=== PATIENT | female | born 1975 | race African-American/Black ===

== ENCOUNTER 2016-12-10 11:39 | Emergency (ER) | payer OTHER ==
[~2016-12-10 11:39] MED LIST: ALBUTEROL0.09 MG/A1 INH; AMOXICILLIN875 MG PO; AUGMENTIN 875 M1 TAB PO; IBUPROFEN800 MG PO
--- NOTE | 2016-12-10 11:55 | ED GI/GU/ABDOMINAL COMPLAINT ---
History of Present Illness General Chief Complaint: Female Urogenital Problems Stated Complaint: ? , BACK/FLANK DISCOMFORT Source: patient, old records Exam Limitations: no limitations Vital Signs & Intake/Output Vital Signs & Intake/Output Vital Signs Date Time Temp Pulse Resp B/P B/P Pulse O2 O2 Flow FiO2 Mean Ox Delivery Rate 12/10 1458 76 18 127/81 98 Room Air 12/10 1150 98.4 94 16 143/86 97 Room Air Allergies Uncoded Allergies: SHRIMP (DIFF BREATHING THROAT CLOSES 10/28/11) Reconcile Medications Albuterol Sulfate (Albuterol Sulfate Hfa) 0.09 MG/Actuation CHRISTINA 2 PUFF INH Q4- 6 PRN PRN SHORTNESS OF BREATH 90 MCG PER PUFF Amoxicillin 875 MG TAB 1 TAB PO BID INFECTION AMOXICILLIN/POTASSIUM CLAV (Augmentin 875-125 Tablet) 875 MG/125 MG TAB 1 TAB PO BID SINUSITIS/BRONCHITIS Ibuprofen 800 MG TAB 1 TAB PO TID PAIN Triage Note: PT TO TRIAGE WITH MID BACK PAIN RADIATING AROUND TO FRONT OF HER ABDOMEN. DENIES ANY URINARY S/S. +NAUSEA. STATES SHE IS , UNSURE EXACT TIMELINE. STATES LMP WAS END OF SEPTEMBER. OB IS DR ECHAVARRIA. Triage Nurses Notes Reviewed? yes LMP (ages 10-50): 10/06 ? y Is pt currently ? No Onset: Abrupt Duration: week(s): (1), constant, intermittent Timing: recent history Quality/Severity: cramping Severity Numbers: 5 Location: generalized abdomen, low back Radiation: no radiation Activities at Onset: none No Modifying Factors: none Associated Symptoms: nausea HPI: This is a 41-year-old female presents to ER for evaluation complaining of bilateral lower back pain associated crampy generalized abdominal pain for the past 1 week. She states she initially attributed the symptoms to standing at her job. 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 rodriguez, whom she saw last week. She had an ultrasound that confirmed an IUP and she states she was told she is a partially 5 weeks . Her last ventral cycles at the end of September. She denies any vaginal bleeding or discharge. She reports intermittent nausea she is not taken anything for her back pain no recent fall or trauma. Her abdominal surgery significant for appendectomy cholecystectomy. No fever no chills no chest pain or shortness of breath (REGGIE HALL) Past History Travel History Traveled to [place] past 21 day No Medical History Any Pertinent Medical History? 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 No (REGGIE HALL) Review of Systems Review of Systems Constitutional: Reports: see HPI. All Other Systems: Reviewed and Negative Comments Review of systems: See HPI, All other systems negative. Constitutional, no chills no fever, no malaise HEENT: No visual changes no sore throat no congestion, no ear pain Cardiovascular: No chest pain , no palpitation Skin: no rashes, no change in skin Respiratory: No dyspnea no cough no sputum GI: No nausea no vomiting, no diarrhea : No dysuria Muscle skeletal: No joint pain, no joint swelling, no back pain, no neck pain, Neurologic: No numbness no headache Psych: No stress Heme/endocrine: No bruising no bleeding Immunology: No lymphadenopathy (REGGIE HALL) Physical Exam Physical Exam General Appearance: well developed/nourished, alert, awake Gastrointestinal: soft Comments: Well-developed well-nourished person in no acute distress HEENT: Normal EENT exam; PERRL, EOMI, HEAD is atraumatic. moist mucous membranes. Neck: Supple, no lymphadenopathy, normal range of motion Back: Bilateral paralumbar muscle tenderness palpation no CVA tenderness. Full range of motion Cardiovascular: Regular rate and rhythms no murmurs Respiratory: No respiratory distress. Patient speaking in full complete sentences. Breath sounds clear to auscultation bilaterally: NO W/R/R Abdomen: Soft, P's, nontender nondistended, no appreciable organomegaly. Normal bowel sounds. No rebound/guarding, Extremity: No edema, full range of motion of extremities, Neuro: Alert oriented x3, motor sensory normal,. There were no obvious focal neurologic abnormalities. Skin: No appreciable rash on exposed skin, skin is warm and dry. Psych: Mood and affect is normal, memory and judgment is normal. Core Measures ACS in differential dx? No Severe Sepsis Present: No Septic Shock Present: No (DONNA MIRANDA,REGGIE) Progress Differential Diagnosis: appendicitis, bowel obstruction, colon cancer, cholecystitis, ectopic , gastritis, hepatitis, hernia, inflamm bowel dis, intrauterine , kidney stone, ovarian cyst, ovarian torsion, pancreatitis, PID/cervicitis, peptic ulcer, PUD/GERD, perforated viscous, SBO Plan of Care: Orders Procedure Date/time Status HUMAN BETA HCG TITRE 12/10 1155 Complete COMPREHENSIVE METABOLIC PANEL 12/10 1155 Complete CBC WITHOUT DIFFERENTIAL 12/10 1155 Complete CULTURE,URINE 12/10 1142 Active URINALYSIS 12/10 1142 Complete Laboratory Tests 12/10/16 1324: Urinalysis LIGHT H, Urine Color YEL, Urine Clarity HAZY H, Urine pH 6.0, Ur Specific [place] >= 1.030, Urine Protein 100 H, Urine Ketones NEG, Urine Nitrite NEG, Urine Bilirubin NEG, Urine Urobilinogen 0.2, Ur Leukocyte Esterase NEG, Ur Microscopic SEDIMENT EXAMINED, Urine RBC 1-3, Urine WBC 1-3 H, Ur Epithelial Cells MOD H, Urine Bacteria FEW H, Urine Mucus FEW, Urine Hemoglobin NEG, Urine Glucose NEG 12/10/16 1211: Anion Gap 10, Estimated GFR > 60, BUN/Creatinine Ratio 18.3, Glucose 215 H, Calcium 9.0, Total Bilirubin 0.3, AST 11 L, ALT 23, Alkaline Phosphatase 58, Total Protein 6.3, Albumin 3.5, Globulin 2.8, Albumin/Globulin Ratio 1.3, Beta HCG, Quant 2379.3, CBC w Diff MAN DIFF ORDERED, RBC 4.65, MCV 78.4 L, MCH 25.1 L, RDW 16.1 H, MPV 7.4, Gran % 52.3, Lymphocytes % 37.7, Monocytes % 4.9, Eosinophils % 4.7, Basophils % 0.4, Absolute Granulocytes 5.0, Absolute Lymphocytes 3.6 H, Absolute Monocytes 0.5, Absolute Eosinophils 0.4, Absolute Basophils 0, Platelet Estimate VERIFIED BY SMEAR, Hypochromic-Microcytic 1+, Anisocytosis 1+, Microcytic Cells 1+, PUBS MCHC 32.0 L Microbiology 12/10 1324 URINE ROUT: Urine Culture - RECD Labs ordered old records reviewed patient acute Zofran ODT case discussed with Dr. Lockett agrees with plan Repeat evaluation patient is feeling improved. She's had no episodes of nausea or vomiting here in the department I discussed with the patient at length all of their results. I had an extensive conversation regarding need for close follow up with their primary care physician this week as well as return precautions. I answered all of their questions, they feel comfortable with the plan and follow-up care. I discussed with the patient/family the medications that they will receive. I gave them signs and symptoms that could indicate an adverse reaction. I have advised them to limit their activities until they can see how they respond to the medication. (REGGIE HALL) Diagnostic Imaging: Viewed by Me: Ultrasound. Discussed w/RAD: Ultrasound. Radiology Impression: PATIENT: MORRIS MAURICIO PRESENT AGE: 41 PATIENT ACCOUNT NO: [id number] : 76 LOCATION: [facility] ORDERING PHYSICIAN: REGGIE MIRANDA SERVICE DATE: 12/10/161207 EXAM TYPE: US - US TRANSVAG EXAMINATION: ULTRASOUND FIRST TRIMESTER CLINICAL INFORMATION: Back pain. . COMPARISON: None. TECHNIQUE: Transabdominal and transvaginal imaging of the pelvis was performed. Transvaginal imaging was performed for further evaluation of the endometrium and adnexa. Evaluation is limited secondary to the patient's extreme body habitus. FINDINGS: Limited exam as stated above. A normal gravid uterus is identified. A single living intrauterine gestation is identified with a crown-rump length of 4 mm corresponding to 5 weeks 4 days. This is discordant from the age by dates of 6 weeks 4 days. The JOANN by ultrasound is 08/08/2017. A heart rate is identified; however, measurements cannot be obtained, limited by the patient's extreme body habitus. Neither ovary is identified. No adnexal mass lesions are demonstrable. There is no pelvic free fluid. IMPRESSION: Limited exam as stated above. Living intrauterine gestation identified with an JOANN of 08/08/2017. DICTATED BY: HUMA CARTER MD DATE/TIME DICTATED:12/10/161437 FURRIER DESIGNER:RIP DATE/TIME TRANSCRIBED:12/10/161437 CONFIDENTIAL, DO NOT COPY WITHOUT APPROPRIATE AUTHORIZATION. 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 bland diet,tylenol for pain. ice packs, heating pads as needed to your back. return to the ER with any concerns Departure Forms: Customer Survey General Discharge Information (REGGIE HALL) PA/DIRECTOR OF ACADEMIC SUPPORT Co-Sign Statement Statement: ED Attending supervision documentation- [] I saw and evaluated the patient. I have also reviewed all the pertinent lab results and diagnostic results. I agree with the findings and the plan of care as documented in the PA's/DIRECTOR OF ACADEMIC SUPPORT's documentation. [X] I have reviewed the ED Record and agree with the PA's/DIRECTOR OF ACADEMIC SUPPORT's documentation. [] Additions or exceptions (if any) to the PAs/DIRECTOR OF ACADEMIC SUPPORT's note and plan are summarized below: [] (MANUEL ALEJANDRO,JAX Ruelas)
[2016-12-10 12:35] LABS: ABSOLUTE BASOPHIL COUNT 0 /CUMM (0.0-0.2); ABSOLUTE EOSINOPHIL COUNT 0.4 /CUMM (0.0-0.7); ABSOLUTE LYMPH COUNT 3.6 /CUMM (1.2-3.4); ABSOLUTE MONOCYTE COUNT 0.5 /CUMM (0.10-0.60); BASOPHIL % 0.4 % (0.0-2.0); EOSINOPHIL % 4.7 % (0-5); GRANULOCYTE % 52.3 % (42.2-75.2); HEMATOCRIT 36.5 % (37-47); MEAN CORPUSCULAR HGB 25.1 PG (27.0-31.0); MEAN CORPUSCULAR VOLUME 78.4 FL (81.0-99.0); MEAN PLATELET VOLUME 7.4 FL (7.4-10.4); PLATELET COUNT 244 /CUMM (130-400); RBC DISTRIBUTION WIDTH 16.1 % (11.5-14.5); RED BLOOD CELL CT 4.65 /CUMM (4.20-5.40); WHITE BLOOD CELL COUNT 9.5 /CUMM (4.8-10.8)
--- NOTE | 2016-12-10 14:46 | ULTRASOUND REPORT ---
EXAMINATION: ULTRASOUND FIRST TRIMESTER CLINICAL INFORMATION: Back pain. . COMPARISON: None. TECHNIQUE: Transabdominal and transvaginal imaging of the pelvis was performed. Transvaginal imaging was performed for further evaluation of the endometrium and adnexa. Evaluation is limited secondary to the patient's extreme body habitus. FINDINGS: Limited exam as stated above. A normal gravid uterus is identified. A single living intrauterine gestation is identified with a crown-rump length of 4 mm corresponding to 5 weeks 4 days. This is discordant from the age by dates of 6 weeks 4 days. The JOANN by ultrasound is 08/08/2017. A heart rate is identified; however, measurements cannot be obtained, limited by the patient's extreme body habitus. Neither ovary is identified. No adnexal mass lesions are demonstrable. There is no pelvic free fluid. IMPRESSION: Limited exam as stated above. Living intrauterine gestation identified with an JOANN of 08/08/2017.
[2016-12-10 14:58] VITALS: BP 127/81
== END 2016-12-10 15:02 ==
LOC: ERH 11:39
PROVIDERS: Physician Assistant Medical
DX: O26.91 Pregnancy related conditions, unspecified, first trimester (principal); R10.84 Generalized abdominal pain; Z3A.01 Less than 8 weeks gestation of pregnancy
CPT/HCPCS: 76817; 81001; 81025; 87086; J3101

== ENCOUNTER 2016-12-20 02:10 | Emergency (ER) | payer OTHER ==
[~2016-12-20] VITALS: Ht 175.3 cm; Wt 108.9 kg
[2016-12-20 02:23] VITALS: BP 157/87
--- NOTE | 2016-12-20 02:28 | ED GI/GU/ABDOMINAL COMPLAINT ---
History of Present Illness General Chief Complaint: Female Urogenital Problems Stated Complaint: PER PT ABOUT 5-6WKS PREG PASSED CLOT TONIGHT Source: patient, old records Exam Limitations: no limitations Vital Signs & Intake/Output Vital Signs & Intake/Output Vital Signs Date Time Temp Pulse Resp B/P B/P Pulse O2 O2 Flow FiO2 Mean Ox Delivery Rate 12/20 226 98 Room Air 12/20 222 96.5 96 18 157/87 98 Room Air Allergies Uncoded Allergies: SHRIMP (DIFF BREATHING THROAT CLOSES 10/28/11) Reconcile Medications Albuterol Sulfate (Albuterol Sulfate Hfa) 0.09 MG/Actuation CHRISTINA 2 PUFF INH Q4- 6 PRN PRN SHORTNESS OF BREATH 90 MCG PER PUFF Amoxicillin 875 MG TAB 1 TAB PO BID INFECTION AMOXICILLIN/POTASSIUM CLAV (Augmentin 875-125 Tablet) 875 MG/125 MG TAB 1 TAB PO BID SINUSITIS/BRONCHITIS Ibuprofen 800 MG TAB 1 TAB PO TID PAIN Triage Note: PT FROM HOME C/O SPOTTING WITH . PT STATES SHE IS BETWEEN 5-7 WEEKS , PT STATES THIS MORNING "AFTER MY OBGYN APPT I BEGAN SPOTTING AROUND 1230 THEN ABOUT 1 HR AGO? ABOUT THE SIZE OF A GRAPEFRUIT" PT DENIES SOB, CP, BRADLEY, N.V.D. AWAITING PROVIDER EVAL Triage Nurses Notes Reviewed? yes ? Y Is pt currently ? No HPI: Patient is known B+ who is approximately 6 weeks presents with vaginal spotting that started earlier this evening and then prior to arrival she passed a rather large blood clot. There is no pelvic pain or cramping. There is no nausea or vomiting. There is no dysuria. Patient comes in for evaluation. Past History Travel History Traveled to [place] past 21 day No Medical History Any Pertinent Medical History? 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 No Review of Systems Review of Systems Constitutional: Reports: no symptoms. Respiratory: Reports: no symptoms. Cardiovascular: Reports: no symptoms. GI: Reports: no symptoms. Genitourinary: Reports: see HPI. Musculoskeletal: Reports: no symptoms. Neurological/Psychological: Reports: no symptoms. Immunologic/Allergic: Reports: no symptoms. Physical Exam Physical Exam General Appearance: well developed/nourished, alert, awake, mild distress Head: atraumatic Eyes: Bilateral: PERRL, EOMI. Neck: normal inspection, supple Respiratory: normal breath sounds, chest non-tender, no respiratory distress, lungs clear Cardiovascular: regular rate/rhythm, normal peripheral pulses Gastrointestinal: normal bowel sounds, soft, non-tender, no organomegaly Back: normal inspection, normal range of motion Extremities: normal range of motion Neurologic/Psych: no motor/sensory deficits, awake, alert, oriented x 3, normal gait, normal mood/affect Skin: intact, normal color, warm/dry Core Measures ACS in differential dx? No Severe Sepsis Present: No Septic Shock Present: No Progress Differential Diagnosis: intrauterine , threatened AB, UTI/pyelo Plan of Care: Orders Procedure Date/time Status URINALYSIS 12/20 226 Complete HUMAN BETA HCG TITRE 12/20 226 Complete COMPREHENSIVE METABOLIC PANEL 12/20 226 Complete CBC WITHOUT DIFFERENTIAL 12/20 226 Complete Laboratory Tests 12/20/16 0252: Urine Color PINK H, Urine Clarity CLDY H, Urine pH 6.0, Ur Specific [place] 1.025, Urine Protein 30 H, Urine Ketones NEG, Urine Nitrite NEG, Urine Bilirubin NEG, Urine Urobilinogen 0.2, Ur Leukocyte Esterase NEG, Ur Microscopic SEDIMENT EXAMINED, Urine RBC >75 H, Urine WBC 3-5 H, Ur Epithelial Cells MOD H, Urine Bacteria FEW H, Urine Mucus FEW, Urine Hemoglobin LARGE H, Urine Glucose >=1000 H 12/20/16 0234: Anion Gap 11, Estimated GFR > 60, BUN/Creatinine Ratio 16.7, Glucose 280 H, Calcium 9.0, Total Bilirubin 0.3, AST 15, ALT 23, Alkaline Phosphatase 56, Total Protein 6.5, Albumin 3.7, Globulin 2.8, Albumin/Globulin Ratio 1.3, Beta HCG, Quant 4464.0, CBC w Diff NO MAN DIFF REQ, RBC 4.72, MCV 77.6 L, MCH 25.2 L, RDW 16.4 H, MPV 7.3 L, Gran % 49.3, Lymphocytes % 38.1, Monocytes % 5.0, Eosinophils % 5.7 H, Basophils % 1.9, Absolute Granulocytes 4.7, Absolute Lymphocytes 3.7 H, Absolute Monocytes 0.5, Absolute Eosinophils 0.5, Absolute Basophils 0.2, PUBS MCHC 32.5 L Initial ED EKG: none Comments: ULTRASOUND REVIEWED. Departure Departure Disposition: HOME OR SELF CARE Condition: Stable Clinical Impression Primary Impression: Threatened miscarriage in early Referrals: NORTH ALEJANDRO,CONSTANZA Fiore (PCP/Family) AMGDA ALEJANDRO,SHERIF Additional Instructions: TAKE IT EASY NO HEAVY LIFTING OR INTERCOURSE UNTIL CLEARED BY DR. MAN RETURN FOR ANY CONCERNS Departure Forms: Customer Survey General Discharge Information
[2016-12-20 02:41] LABS: ABSOLUTE BASOPHIL COUNT 0.2 /CUMM (0.0-0.2); ABSOLUTE EOSINOPHIL COUNT 0.5 /CUMM (0.0-0.7); ABSOLUTE GRANULOCYTE CT 4.7 /CUMM (1.4-6.5); ABSOLUTE LYMPH COUNT 3.7 /CUMM (1.2-3.4); ABSOLUTE MONOCYTE COUNT 0.5 /CUMM (0.10-0.60); BASOPHIL % 1.9 % (0.0-2.0); EOSINOPHIL % 5.7 % (0-5); GRANULOCYTE % 49.3 % (42.2-75.2); HEMATOCRIT 36.6 % (37-47); MEAN CORPUSCULAR HGB 25.2 PG (27.0-31.0); MEAN CORPUSCULAR HGB CONC 32.5 G/DL (33.0-37.0); MEAN CORPUSCULAR VOLUME 77.6 FL (81.0-99.0); MEAN PLATELET VOLUME 7.3 FL (7.4-10.4); PLATELET COUNT 275 /CUMM (130-400); RBC DISTRIBUTION WIDTH 16.4 % (11.5-14.5); RED BLOOD CELL CT 4.72 /CUMM (4.20-5.40); WHITE BLOOD CELL COUNT 9.6 /CUMM (4.8-10.8)
== END 2016-12-20 03:23 ==
LOC: ERH 02:10
PROVIDERS: Emergency Medicine
DX: O20.0 Threatened abortion (principal)
CPT/HCPCS: 81001

== ENCOUNTER 2018-04-20 10:48 | Emergency (ER) | payer OTHER ==
[~2018-04-20] VITALS: Ht 175.3 cm; Wt 159.2 kg
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
--- NOTE | 2018-04-20 12:12 | RADIOLOGY REPORT ---
EXAMINATION: XR HAND, LEFT CLINICAL INFORMATION: Injury. Pain left thumb. COMPARISON: None TECHNIQUE: PA, lateral, and oblique views of the left hand. FINDINGS: The bones and soft tissues are normal. No fracture. Alignment is anatomic. Joint spaces are maintained. Mild degenerative changes are seen at the articulation between the trapezium and first metacarpal. No acute abnormality. IMPRESSION: No acute abnormality.
[2018-04-20 12:39] LABS: ABSOLUTE BASOPHIL COUNT 0 /CUMM (0.0-0.2); ABSOLUTE EOSINOPHIL COUNT 0.4 /CUMM (0.0-0.7); ABSOLUTE GRANULOCYTE CT 4.5 /CUMM (1.4-6.5); ABSOLUTE LYMPH COUNT 3.2 /CUMM (1.2-3.4); ABSOLUTE MONOCYTE COUNT 0.4 /CUMM (0.10-0.60); BASOPHIL % 0.5 % (0.0-2.0); EOSINOPHIL % 4.9 % (0-5); GRANULOCYTE % 52.3 % (42.2-75.2); HEMATOCRIT 36.3 % (37-47); MEAN CORPUSCULAR HGB 25.3 PG (27.0-31.0); MEAN CORPUSCULAR HGB CONC 32.1 G/DL (33.0-37.0); MEAN CORPUSCULAR VOLUME 78.9 FL (81.0-99.0); PLATELET COUNT 296 /CUMM (130-400); RBC DISTRIBUTION WIDTH 15.4 % (11.5-14.5); RED BLOOD CELL CT 4.61 /CUMM (4.20-5.40); WHITE BLOOD CELL COUNT 8.5 /CUMM (4.8-10.8)
[2018-04-20 16:16] VITALS: BP 137/88
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
== END 2018-04-20 17:45 ==
LOC: ERH 10:48
PROVIDERS: Physician Assistant Medical
DX: F41.9 Anxiety disorder, unspecified (principal); F32.9 Major depressive disorder, single episode, unspecified; X58.XXXA Exposure to other specified factors, initial encounter; Y93.89 Activity, other specified; Y92.9 Unspecified place or not applicable
CPT/HCPCS: 73130-LT; 80307; 81025; G0463; G0480